=== PATIENT | male | born 1950 | race Caucasian/White ===

== ENCOUNTER 2020-03-29 14:23 | Inpatient (IN) | payer MEDICARE, MEDICAID ==
[~2020-03-29] VITALS: Ht 180.3 cm; Wt 122.7 kg
--- NOTE | 2020-03-29 14:49 | NUR ---
KWAME BEGUM NOTIFIED OF PT AND HIS COMPLAINT
--- NOTE | 2020-03-29 15:07 | NUR ---
To CT with tech
[2020-03-29 16:08] LABS: BASOPHILS % (AUTO) 0.5 % (0-1); EOSINOPHILS % (AUTO) 0.3 % (0-6); HEMOGLOBIN 12.2 g/dl (14.0-17.9); LYMPHOCYTES # (AUTO) 1.1 X10'3 (1.1-4.8); LYMPHOCYTES % (AUTO) 12.8 % (21-51); MEAN CORPUSCULAR HEMOGLOBIN 23.9 PG (27.0-31.0); MEAN CORPUSCULAR HGB CONC 32.8 g/dL (33.0-36.5); MEAN CORPUSCULAR VOLUME 72.7 FL (78-98); MEAN PLATELET VOLUME 8.8 FL (7.4-10.4); MONOCYTES # (AUTO) 1.5 X10'3 (0-0.9); MONOCYTES % (AUTO) 17.3 % (2-12); NEUTROPHILS # (AUTO) 5.9 X10'3 (1.8-7.7); NEUTROPHILS % (AUTO) 69.1 % (42-75); PLATELET COUNT 196 X10'3 (140-440); RED BLOOD COUNT 5.09 X10'6 (4.70-6.10); RED CELL DISTRIBUTION WIDTH 19.9 % (11.5-14.5); WHITE BLOOD COUNT 8.5 X10'3 (4.5-11.0)
--- NOTE | 2020-03-29 16:17 | NUR ---
Tele neuro consult in progress
[2020-03-29] MEDS ORDERED: aspirin 325mg tablet PO ONE (16:25)
[2020-03-29 16:26] LABS: CHLORIDE 102 MMOL/L (99-107); GLUCOSE 178 MG/DL (70-104); SODIUM 138 MMOL/L (135-145); TOTAL CARBON DIOXIDE 24.3 MMOL/L (24-32)
[2020-03-29 16:27] LABS: ALANINE AMINOTRANSFERASE 14 U/L (12-78); ALBUMIN 3.5 G/DL (3.4-5.0); ALBUMIN/GLOBULIN RATIO 0.9 (1.1-1.5); ALKALINE PHOSPHATASE 80 IU/L (46-116); ANION GAP 12 (8-16); ASPARTATE AMINO TRANSFERASE 7 U/L (10-37); BILIRUBIN,TOTAL 1.1 MG/DL (0.1-1.0); BLOOD UREA NITROGEN 28 MG/DL (7-18); BUN/CREATININE RATIO 19.3 (5.4-32.0); CALCIUM 8.8 MG/DL (8.5-10.1); CREATININE 1.45 MG/DL (0.60-1.10); TOTAL PROTEIN 7.6 G/DL (6.4-8.2); eGFR 49 ML/MIN
[2020-03-29] MEDS ORDERED: NITR0.4T51 SL (16:47)
[2020-03-29] MEDS ORDERED: METF-438 PO (16:47)
[2020-03-29] MEDS ORDERED: HYDR-3965 PO (16:47)
[2020-03-29] MEDS ORDERED: RIVA20TA PO (16:47)
[2020-03-29] MEDS ORDERED: OMEP40CA13 PO (16:47)
[2020-03-29] MEDS ORDERED: FURO20TA4 PO (16:47)
[2020-03-29] MEDS ORDERED: SPIR25TA5 PO (16:47)
[2020-03-29] MEDS ORDERED: LEVO75TA7 PO (16:47)
[2020-03-29] MEDS ORDERED: LORA10TA7 PO (16:47)
[2020-03-29] MEDS ORDERED: CARV25TA2 PO (16:47)
[2020-03-29] MEDS ORDERED: CARV25TA56 PO (16:47)
[2020-03-29] MEDS ORDERED: ATOR10TA70 PO (16:47)
[2020-03-29] MEDS ORDERED: FLUT16SP26 (16:47)
[2020-03-29] MEDS ORDERED: SAXA5TAB PO (16:47)
[2020-03-29] MEDS ORDERED: EMPA25TA PO (16:47)
[2020-03-29] MEDS ORDERED: TIZA4TAB5 PO (16:47)
[2020-03-29 17:01] LABS: PARTIAL THROMBOPLASTIN TIME 36 SECONDS (22-32)
--- NOTE | 2020-03-29 17:05 | NUR ---
CORKY [phone]
[2020-03-29 17:43] LABS: ETHANOL < 0.010 GM/DL (0.0-0.010)
--- NOTE | 2020-03-29 17:45 | NUR ---
Dr. Downing at bedside
[2020-03-29] MEDS ORDERED: acetaminophen 325mg tablet PO PRN ×2 (18:20)
[2020-03-29] MEDS ORDERED: LORazepam 2 mg/ml vial IV PRN (18:20)
[2020-03-29] MEDS ORDERED: magnesium 4gm in 100ml NS 100 ML IV PRN (18:20)
[2020-03-29] MEDS ORDERED: potassium Cl 20 mEq SR tablet PO PRN ×2 (18:20)
[2020-03-29] MEDS ORDERED: magnesium Cl slow-release 64mg tablet PO PRN (18:20)
[2020-03-29] MEDS ORDERED: ondansetron/PF 4mg/2ml inj IV PRN (18:20)
[2020-03-29] MEDS ORDERED: potassium Cl 40MEQ/1/2NS 520ml 520 ML IV PRN ×2 (18:20)
[2020-03-29] MEDS ORDERED: morphine 2 MG/ML inj. syringe IV PRN ×2 (18:20)
[2020-03-29] MEDS ORDERED: HYDROcodone/acetaminophen 5mg/325mg tablet PO PRN (18:20)
[2020-03-29] MEDS ORDERED: magnesium 2GM in 50ml NS 50 ML IV PRN (18:20)
[2020-03-29] MEDS ORDERED: LORazepam 1 MG tablet PO PRN (18:20)
[2020-03-29] MEDS ORDERED: HYDROcodone/acetaminophen 10/325mg tab PO PRN (18:20)
[2020-03-29] MEDS ORDERED: docusate sod 100mg capsule PO PRN (18:20)
[2020-03-29] MEDS ORDERED: insulin Lispro (HumaLOG) vial - multi-dose SQ SCH (18:35)
[2020-03-29] MEDS ORDERED: dextrose ORAL solution 15 GM/59 ML bottle PO PRN ×2 (18:35)
[2020-03-29] MEDS ORDERED: glucagon, human recombinant 1mg kit SUBCUT PRN (18:35)
[2020-03-29] MEDS ORDERED: dextrose 50%-water 50ml dispensing syringe IV PRN ×2 (18:35)
[2020-03-29] MEDS ORDERED: MESSAGE TO PHARMACY PO ONE (18:35)
[2020-03-29] MEDS: K and/or MAG REPLACEMENT MC SCH (18:51)
[2020-03-29 19:00] LABS: HEMOGLOBIN A1C 8.4 % (4.5-6.2)
[2020-03-29] MEDS: normal saline 1000ml 1,000 ML IV SCH (19:36)
[2020-03-29 20:01] LABS: URINE AMPHETAMINE SCREEN NEGATIVE (Neg); URINE BARBITUATE SCREEN NEGATIVE (Neg); URINE BENZODIAZEPINES SCREEN NEGATIVE (Neg); URINE CANNABINOID SCREEN POSITIVE (Neg); URINE COCAINE SCREEN NEGATIVE (Neg); URINE METHADONE SCREEN NEGATIVE (Neg); URINE OPIATE SCREEN NEGATIVE (Neg); URINE PHENCYCLIDINE SCREEN NEGATIVE (Neg)
[2020-03-29] MEDS: carVEDilol 3.125mg tablet PO SCH (20:53)
[2020-03-29] MEDS ORDERED: insulin glargine (Lantus) pen - multi-dose SQ SCH (21:00)
[2020-03-29] MEDS ORDERED: atorvastatin 10mg tablet PO SCH (21:00)
[2020-03-29] MEDS ORDERED: temazepam 15mg capsule PO PRN (21:00)
--- NOTE | 2020-03-29 21:04 | NUR ---
Dr. South called to ask if ok for pt to have SQ Heparin since he had Xarelto this monty, reports that is ok. Awaiting return call from PCU for bed
[2020-03-29] MEDS: heparin, porcine 5000 units/ml vial SQ SCH (21:14)
--- NOTE | 2020-03-29 21:30 | NUR ---
Patient in room PCU 3025. I have received report from Allyson SCHWARTZ (ER) and had the opportunity to ask questions and assume patient care.
[2020-03-29 21:45] VITALS: BP 115/82
--- NOTE | 2020-03-29 21:45 | NUR ---
Patient arrived to the floor via gurney, escorted by Aashish CSHWARTZ from ER, in stable condition. Patient brought cell phone, wallet, shoes, socks, pants and shirt with him, all belongings except cell phone are in assigned closet in room, cell phone is with patient. Currently, resting comfortably in bed, will continue to monitor.
[2020-03-29 22:00] VITALS: BP_SYST 106; BP_SYST 109; BP_SYST 119; BP_DIAS 66; BP_DIAS 70; BP_DIAS 74
--- NOTE | 2020-03-29 22:54 | NUR ---
Patient: Murtaza Carrera. Rm#[id number]. swallow study done patient passed, can I put diet order in? Hx: DM 2, protocol active. Melissa SCHWARTZ Ext#[phone] Thank you. Addendum: 03/29/20 at 2301 by Melissa Allen RN Discussed patient situation with . Bed side swallow completed, patient tolerated-water, Jello and Sandwhich, with no complications. MD ordered Heart Healthy diet/Carb Controlled.
[2020-03-30 01:11] LABS: ALANINE AMINOTRANSFERASE 14 U/L (12-78); ALBUMIN 3.2 G/DL (3.4-5.0); ALBUMIN/GLOBULIN RATIO 0.8 (1.1-1.5); ALKALINE PHOSPHATASE 74 IU/L (46-116); ANION GAP 12 (8-16); ASPARTATE AMINO TRANSFERASE 18 U/L (10-37); BILIRUBIN,TOTAL 1.1 MG/DL (0.1-1.0); BLOOD UREA NITROGEN 29 MG/DL (7-18); CALCIUM 8.6 MG/DL (8.5-10.1); CHLORIDE 104 MMOL/L (99-107); CREATININE 1.38 MG/DL (0.60-1.10); GLUCOSE 203 MG/DL (70-104); POTASSIUM 3.5 MMOL/L (3.5-5.1); SODIUM 140 MMOL/L (135-145); TOTAL CARBON DIOXIDE 23.6 MMOL/L (24-32); TOTAL PROTEIN 7.1 G/DL (6.4-8.2); eGFR 51 ML/MIN
[2020-03-30 01:13] LABS: CHOL/HDL RATIO 2.3 (0.00-4.99); CHOLESTEROL 89 MG/DL (0-200); HDL CHOLESTEROL 38 MG/DL (35-60); LDL CHOLESTEROL 45 MG/DL (50-100); MAGNESIUM 1.9 MG/DL (1.5-2.4); TRIGLYCERIDES 83 MG/DL (20-135)
[2020-03-30 02:00] VITALS: BP 110/69
[2020-03-30 04:16] LABS: BASOPHILS # (AUTO) 0.1 X10'3 (0-0.2); BASOPHILS % (AUTO) 0.9 % (0-1); EOSINOPHILS # (AUTO) 0.1 X10'3 (0-0.9); EOSINOPHILS % (AUTO) 0.6 % (0-6); HEMOGLOBIN 11.9 g/dl (14.0-17.9); LYMPHOCYTES # (AUTO) 1.3 X10'3 (1.1-4.8); LYMPHOCYTES % (AUTO) 15.9 % (21-51); MEAN CORPUSCULAR HEMOGLOBIN 23.7 PG (27.0-31.0); MEAN CORPUSCULAR VOLUME 74.1 FL (78-98); MEAN PLATELET VOLUME 9.2 FL (7.4-10.4); MONOCYTES # (AUTO) 1.3 X10'3 (0-0.9); MONOCYTES % (AUTO) 15.7 % (2-12); NEUTROPHILS # (AUTO) 5.4 X10'3 (1.8-7.7); NEUTROPHILS % (AUTO) 66.9 % (42-75); PLATELET COUNT 176 X10'3 (140-440); WHITE BLOOD COUNT 8.1 X10'3 (4.5-11.0)
[2020-03-30] MEDS: normal saline 1000ml 1,000 ML IV SCH (04:58)
[2020-03-30 06:00] VITALS: BP 108/70
--- NOTE | 2020-03-30 06:33 | NUR ---
Problems reprioritized. Patient report given, questions answered & plan of care reviewed with TAHIRA SCHWARTZ.
[2020-03-30 07:21] LABS: TOTAL CELLS COUNTED 100
[2020-03-30 07:22] LABS: PLATELET ESTIMATE NORMAL
[2020-03-30 07:23] LABS: ANISOCYTOSIS 2+; ELLIPTOCYTES FEW; MICROCYTOSIS 1+; POLYCHROMASIA FEW
[2020-03-30] MEDS ORDERED: levoTHYROXINE 75mcg tablet PO SCH (07:30)
--- NOTE | 2020-03-30 07:43 | NUR ---
STROKE RN PAGED.
[2020-03-30 08:00] VITALS: BP 108/70
[2020-03-30] MEDS ORDERED: pantoprazole 40mg Tablet.DR PO SCH (08:00)
[2020-03-30] MEDS ORDERED: fluticasone nasal spray 16GM bottle NS SCH (08:00)
[2020-03-30] MEDS: K and/or MAG REPLACEMENT MC SCH (08:00)
[2020-03-30] MEDS ORDERED: furosemide 20MG tablet PO SCH (08:00)
[2020-03-30] MEDS ORDERED: aspirin 81mg tablet.DR PO SCH (08:30)
[2020-03-30 10:00] VITALS: BP 116/76
[2020-03-30] MEDS: carVEDilol 3.125mg tablet PO SCH (10:10)
[2020-03-30] MEDS: heparin, porcine 5000 units/ml vial SQ SCH (10:11)
[2020-03-30 10:30] VITALS: BP_SYST 119; BP_SYST 121; BP_SYST 123; BP_DIAS 71; BP_DIAS 78; BP_DIAS 80
--- NOTE | 2020-03-30 13:04 | NUR ---
PAGER ID: [phone] MESSAGE: CAMMIE ON [phone], ARE WE OK TO DC 302PRERNA Serna, OR DO WANT CAROTID REPORT RESULTED FIRST?
[2020-03-30 13:20] VITALS: BP 108/70
[2020-03-30] MEDS ORDERED: ASPI81TA52 PO (13:37)
--- NOTE | 2020-03-30 14:17 | NUR ---
DM Consult: Pt A1C 8.7 hx T2DM; would benefit from DM ed this admit as medically indicated prior to discharge. Addendum: 03/30/20 at [address] Amended: Links added.
[2020-03-30] MEDS ORDERED: RIVA20TA PO (14:38)
--- NOTE | 2020-04-01 10:22 | NUR ---
CASE MANAGEMENT DISCHARGE FOLLOW UP: Spoke with pt and his daughter via telephone. Pt reports that he is feeling "so-so." He states that he still has visual disturbances, states seeing boxes in peripheral vision with flashing colors and butterflies, states that he is calling his eye doctor today regarding visual changes. States that he also has a headache that comes and got that increases in intensity with coughing. He states that these symptoms are not different than when he was discharged. Verbalizes understanding of s/sx requiring further evaluation/emergent assistance. Pt verbalizes understanding of current medications. Expresses confusion regarding changed medication, sulema, wants to know why MD stopped Rx. Advised that MD did not stop medication, only changed frequency from QDD to daily. Per pt's daughter, she states that pt only taking once a day already. Upon inquiry, she states that pt took 325mg aspirin today instead of 81, clarified confusion regarding aspirin dosing and advised to monitor pt for bleeding and to notify MD if any observed. Pt verbalizes compliance with MD discharge instructions, ensured that pt will talk to PCP regarding carotid US and manager photo for ECHO. Pt verbalizes understanding of the importance in making/keeping follow-up appointments, states has PCP and cardiology appts set up already. Pt and his daughter states no further questions/concerns at this time.
== END 2020-03-30 16:10 | disposition home or self-care (01) | DRG 65 ==
LOC: ER 14:24 → ED HOLD 18:52 → PCU 3S 21:40
PROVIDERS: ADMIT Internal Medicine; ATTEND Internal Medicine
DX: I63.531 Cerebral infarction due to unspecified occlusion or stenosis of right posterior cerebral artery (principal); I13.0 Hypertensive heart and chronic kidney disease with heart failure and stage 1 through stage 4 chronic kidney disease, or unspecified chronic kidney disease; E03.9 Hypothyroidism, unspecified; I50.9 Heart failure, unspecified; N18.30 Chronic kidney disease, stage 3 unspecified; E11.22 Type 2 diabetes mellitus with diabetic chronic kidney disease; E11.36 Type 2 diabetes mellitus with diabetic cataract; E11.65 Type 2 diabetes mellitus with hyperglycemia; E66.9 Obesity, unspecified; E78.00 Pure hypercholesterolemia, unspecified; E78.5 Hyperlipidemia, unspecified; F12.90 Cannabis use, unspecified, uncomplicated; I25.10 Atherosclerotic heart disease of native coronary artery without angina pectoris; I48.0 Paroxysmal atrial fibrillation; D50.9 Iron deficiency anemia, unspecified; J44.9 Chronic obstructive pulmonary disease, unspecified; M25.511 Pain in right shoulder; Z20.822 Contact with and (suspected) exposure to COVID-19; Y93.01 Activity, walking, marching and hiking; M25.512 Pain in left shoulder; W18.39XA Other fall on same level, initial encounter; K21.9 Gastro-esophageal reflux disease without esophagitis; G47.33 Obstructive sleep apnea (adult) (pediatric); G89.29 Other chronic pain; M19.90 Unspecified osteoarthritis, unspecified site; S51.812A Laceration without foreign body of left forearm, initial encounter; Z79.01 Long term (current) use of anticoagulants; Z79.82 Long term (current) use of aspirin; Z79.84 Long term (current) use of oral hypoglycemic drugs; I25.2 Old myocardial infarction; Z79.899 Other long term (current) drug therapy; Z87.891 Personal history of nicotine dependence; Z68.37 Body mass index [BMI] 37.0-37.9, adult; Y92.098 Other place in other non-institutional residence as the place of occurrence of the external cause; Y99.8 Other external cause status; Z98.41 Cataract extraction status, right eye
CPT/HCPCS: 36415; 70450; 70544; 70551; 71045; 80053; 80061; 80305; 80320; 82948; 83036; 83735; 84443; 84484; 85007; 85025; 85610; 85730; 87081; 87635; 93306; 93308; 93880; 97116; 97161; 97530; 99291; G0378; J1644; J1815; J2060; J7030

== ENCOUNTER 2020-04-10 19:46 | Emergency (ER) | payer MEDICARE, MEDICAID ==
[~2020-04-10] VITALS: Ht 180.3 cm; Wt 113.6 kg
[~2020-04-10 19:46] MED LIST: ASPI81TA52 PO; ATOR10TA70 PO; CARV25TA56 PO; EMPA25TA PO; FLUT16SP26; FURO20TA4 PO; HYDR-3965 PO; LEVO75TA7 PO; LORA10TA7 PO; METF-438 PO; NITR0.4T51 SL; OMEP40CA13 PO; RIVA20TA PO; SAXA5TAB PO; SPIR25TA5 PO; TIZA4TAB5 PO
[2020-04-10] MEDS ORDERED: tranexamic acid 1gm/0.7% sal. 100 ML IV ONE (20:40)
--- NOTE | 2020-04-10 20:45 | NUR ---
DR MIRELES ORDERED CT FOR PT LATHAM WITH RECENT HX OF STROKE.
--- NOTE | 2020-04-10 21:01 | NUR ---
PTS S.O. AT BEDSIDE NOW AND TALKING DR. MIRELES TALKING WITH HER. PIV IN PLACE AND TXA JUST STARTED INFUSING (1 GRAM OVER THE NEXT 30 MIN).
[2020-04-10 21:03] VITALS: BP 117/66
--- NOTE | 2020-04-10 21:08 | NUR ---
2 LARGE JEAN-CLAUDE IV'S IN PLACE, JOSE M COMPLETED AND LABS DRAWN. PT TO BE TRANSFERRED TO [facility]. CRYSTAL AT BEDSIDE, CORKY [phone] (CELL), SHE IS CURRENTLY CALLING OTHER FAMILY MEMBERS AND UPDATING
[2020-04-10 21:14] LABS: BASOPHILS # (AUTO) 0.1 X10'3 (0-0.2); BASOPHILS % (AUTO) 0.7 % (0-1); EOSINOPHILS # (AUTO) 0.1 X10'3 (0-0.9); EOSINOPHILS % (AUTO) 1.3 % (0-6); HEMATOCRIT 40.3 % (42.0-52.0); HEMOGLOBIN 12.9 g/dl (14.0-17.9); LYMPHOCYTES # (AUTO) 1.1 X10'3 (1.1-4.8); LYMPHOCYTES % (AUTO) 11.3 % (21-51); MEAN CORPUSCULAR HEMOGLOBIN 23.7 PG (27.0-31.0); MEAN CORPUSCULAR VOLUME 74.2 FL (78-98); MEAN PLATELET VOLUME 8.7 FL (7.4-10.4); MONOCYTES # (AUTO) 1.1 X10'3 (0-0.9); MONOCYTES % (AUTO) 11.8 % (2-12); NEUTROPHILS % (AUTO) 74.9 % (42-75); PLATELET COUNT 241 X10'3 (140-440); RED BLOOD COUNT 5.43 X10'6 (4.70-6.10); RED CELL DISTRIBUTION WIDTH 19.8 % (11.5-14.5); WHITE BLOOD COUNT 9.3 X10'3 (4.5-11.0)
[2020-04-10 21:26] LABS: PARTIAL THROMBOPLASTIN TIME 29 SECONDS (22-32)
[2020-04-10 21:28] LABS: ALANINE AMINOTRANSFERASE 15 U/L (12-78); ALBUMIN 3.7 G/DL (3.4-5.0); ALBUMIN/GLOBULIN RATIO 0.9 (1.1-1.5); ALKALINE PHOSPHATASE 78 IU/L (46-116); ANION GAP 11 (8-16); ASPARTATE AMINO TRANSFERASE 17 U/L (10-37); BILIRUBIN,TOTAL 0.7 MG/DL (0.1-1.0); BLOOD UREA NITROGEN 33 MG/DL (7-18); BUN/CREATININE RATIO 25.8 (5.4-32.0); CALCIUM 9.3 MG/DL (8.5-10.1); CHLORIDE 100 MMOL/L (99-107); CREATININE 1.28 MG/DL (0.60-1.10); GLUCOSE 173 MG/DL (70-104); POTASSIUM 4.1 MMOL/L (3.5-5.1); SODIUM 135 MMOL/L (135-145); eGFR 56 ML/MIN
--- NOTE | 2020-04-10 21:39 | NUR ---
REPORT CALLED TO [facility], LANA MANRIQUE, RECEIVING REPORTS. EMS HERE NOW TO TRANSFER. PT WITH STABLE VS AND NO PAIN. ROJAS KRISTEN, AT BEDSIDE. PT IS ACTING APPROPRIATELY AND REPORTS NO SIGNIFICANT NEUROLOGIC CHANGES EXCEPT FOR SHADING TO HIS LEFT LOWER FIELD OF VISION. NOT CURRENTLYL HAVING HEADACHE. REPORTS PAIN IF AREA TO HIS HEAD PALPATED.
== END 2020-04-10 21:30 | disposition short-term general hospital (02) ==
LOC: ER 19:46
DX: I61.8 Other nontraumatic intracerebral hemorrhage (principal); R51.9 Headache, unspecified; R42 Dizziness and giddiness; I48.91 Unspecified atrial fibrillation; I25.10 Atherosclerotic heart disease of native coronary artery without angina pectoris; I11.0 Hypertensive heart disease with heart failure; I50.9 Heart failure, unspecified; E78.00 Pure hypercholesterolemia, unspecified; I10 Essential (primary) hypertension; J44.9 Chronic obstructive pulmonary disease, unspecified; E11.9 Type 2 diabetes mellitus without complications; Z86.73 Personal history of transient ischemic attack (TIA), and cerebral infarction without residual deficits; Z79.82 Long term (current) use of aspirin; Z79.899 Other long term (current) drug therapy
CPT/HCPCS: 36415; 70450; 80053; 85025; 85610; 85730; 93005; 96365; 99291

== ENCOUNTER 2021-04-03 14:02 | Emergency (ER) | payer BC, MEDICAID ==
[~2021-04-03] VITALS: Ht 180.3 cm; Wt 109.0 kg
[~2021-04-03 14:02] MED LIST changes: -ASPI81TA52 PO; -OMEP40CA13 PO; +OMEP40CA21 PO; +TIZA-205 PO; -TIZA4TAB5 PO
[2021-04-03 15:14] LABS: BASOPHILS % (AUTO) 0.7 % (0-1); EOSINOPHILS # (AUTO) 0.1 X10'3 (0-0.9); EOSINOPHILS % (AUTO) 1.7 % (0-6); HEMOGLOBIN 10.4 g/dl (14.0-17.9); LYMPHOCYTES # (AUTO) 0.7 X10'3 (1.1-4.8); LYMPHOCYTES % (AUTO) 15.4 % (21-51); MEAN CORPUSCULAR HEMOGLOBIN 23.1 PG (27.0-31.0); MEAN CORPUSCULAR HGB CONC 31.7 g/dL (33.0-36.5); MONOCYTES # (AUTO) 0.6 X10'3 (0-0.9); MONOCYTES % (AUTO) 14.4 % (2-12); NEUTROPHILS % (AUTO) 67.8 % (42-75); PLATELET COUNT 195 X10'3 (140-440); RED BLOOD COUNT 4.52 X10'6 (4.70-6.10); RED CELL DISTRIBUTION WIDTH 23.5 % (11.5-14.5); WHITE BLOOD COUNT 4.5 X10'3 (4.5-11.0)
[2021-04-03 15:22] LABS: ALANINE AMINOTRANSFERASE 22 U/L (12-78); ALBUMIN 3.1 G/DL (3.4-5.0); ALKALINE PHOSPHATASE 81 IU/L (46-116); ANION GAP 10 (8-16); ASPARTATE AMINO TRANSFERASE 16 U/L (10-37); BLOOD UREA NITROGEN 24 MG/DL (7-18); BUN/CREATININE RATIO 18.5 (5.4-32.0); CALCIUM 8.3 MG/DL (8.5-10.1); CHLORIDE 108 MMOL/L (99-107); GLUCOSE 247 MG/DL (70-104); POTASSIUM 4.2 MMOL/L (3.5-5.1); SODIUM 146 MMOL/L (135-145); TOTAL CARBON DIOXIDE 27.7 MMOL/L (24-32); TOTAL PROTEIN 6.1 G/DL (6.4-8.2); eGFR 55 ML/MIN
[2021-04-03 15:41] LABS: PLATELET ESTIMATE NORMAL
[2021-04-03 15:42] LABS: ANISOCYTOSIS 3+; ELLIPTOCYTES FEW; HYPOCHROMASIA 1+; MICROCYTOSIS 1+; SCHISTOCYTES FEW; TEAR DROP CELLS FEW
[2021-04-03] MEDS ORDERED: furosemide 10 MG/1 ML 10ml inj IV ONE (16:50)
[2021-04-03 20:18] VITALS: BP 110/70
== END 2021-04-03 20:22 | disposition home or self-care (01) ==
LOC: ER 14:03
DX: I11.0 Hypertensive heart disease with heart failure (principal); I50.9 Heart failure, unspecified; R06.02 Shortness of breath; R05.9 Cough, unspecified; I48.91 Unspecified atrial fibrillation; I25.10 Atherosclerotic heart disease of native coronary artery without angina pectoris; I25.2 Old myocardial infarction; J44.9 Chronic obstructive pulmonary disease, unspecified; E11.9 Type 2 diabetes mellitus without complications; Z86.73 Personal history of transient ischemic attack (TIA), and cerebral infarction without residual deficits; Z79.899 Other long term (current) drug therapy
CPT/HCPCS: 36415; 71045; 80053; 83880; 84484; 85008; 85025; 93005; 96374; 99285; J1940